=== PATIENT | female | born 1995 | race Two or more races ===

== ENCOUNTER 2016-07-06 10:20 | Emergency (ER) | payer OTHER ==
[2016-07-06] MEDS ORDERED: NORMAL SALINE 1000 ML 1,000 ML IV ONE (10:36)
[2016-07-06 12:11] LABS: ABSOLUTE LYMPHOCYTES (AUTO) 1.3 10^3/uL (0.5-4.7); ABSOLUTE MONOCYTES (AUTO) 0.5 10^3/uL (0.1-1.4); ABSOLUTE NEUT (AUTO) 6.9 10^3/uL (1.7-8.2); BASOPHILS % (AUTO) 0.5 % (0-2); EOSINOPHILS % (AUTO) 0.1 % (0-6); HEMATOCRIT 39.6 % (36.0-47.0); HEMOGLOBIN 13.8 g/dL (12.0-15.5); HGB HCT DIFFERENCE 1.8; LYMPHOCYTES % (AUTO) 14.3 % (13-45); MEAN CORPUSCULAR HEMOGLOBIN 31.1 pg (27.0-33.4); MEAN CORPUSCULAR HGB CONC 34.9 g/dL (32.0-36.0); MEAN CORPUSCULAR VOLUME 89 fl (80-97); RED BLOOD COUNT 4.45 10^6/uL (3.72-5.28); RED CELL DISTRIBUTION WIDTH 13.1 % (11.5-14.0); SEGMENTED NEUTROPHILS % (AUTO) 79.1 % (42-78); WHITE BLOOD COUNT 8.8 10^3/uL (4.0-10.5)
[2016-07-06 12:53] LABS: APPEARANCE,URINE CLEAR; BILIRUBIN,URINE NEGATIVE (NEGATIVE); GLUCOSE, URINE NEGATIVE (NEGATIVE); KETONES,URINE 20 mg/dL (NEGATIVE); LEUKOCYTE ESTERASE,URINE NEGATIVE (NEGATIVE); NITRITE,URINE NEGATIVE (NEGATIVE); PROTEIN,URINE NEGATIVE (NEGATIVE); URINE SPECIFIC GRAVITY 1.018; UROBILINOGEN,URINE NEGATIVE mg/dL (<2.0)
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
[2016-07-06 13:24] VITALS: BP 105/59
--- NOTE | 2016-07-06 13:25 | EKG REPORT ---
SEVERITY:- NORMAL ECG - SINUS RHYTHM : Confirmed by: Nolvia Ryder MD 06-Jul-2016 13:25:13
== END 2016-07-06 13:24 | disposition home or self-care (01) ==
LOC: ER 10:20
DX: T14.8 Other injury of unspecified body region (principal); V43.52XA Car driver injured in collision with other type car in traffic accident, initial encounter; M25.551 Pain in right hip; M25.552 Pain in left hip; M54.2 Cervicalgia; R07.89 Other chest pain; Z88.0 Allergy status to penicillin
CPT/HCPCS: 93005; 99285; 51701; 36415; 85025; 81025; 81001; 71020; 73502; 70450; 72125; 93010; J7030